=== PATIENT | male | born 1990 | race Caucasian/White ===

== ENCOUNTER 2017-06-06 15:33 | Emergency (ER) | payer MEDICAID ==
[2017-06-06 15:43] VITALS: BP 128/81
[2017-06-06] MEDS ORDERED: BENZONATATE 100 MG CAPSULE PO STA (16:21)
--- NOTE | 2017-06-06 16:23 | ED Physician Documentation ---
PD HPI URI - Stated complaint Stated Complaint: COUGH/SORE THROAT - Chief complaint Chief Complaint: Resp - History obtained from History obtained from: Patient - History of Present Illness Timing - onset: Yesterday Timing details: Still present Associated symptoms: Nasal congestion, Sore throat, Dry cough Similar symptoms before: Has not had sx before - Additional information Additional information: The patient is a 27-year-old male who presents with cough that began yesterday and continues today. He reports associated sore throat from coughing. He denies fever, headache, chest pain, or shortness of breath. He denies vomiting or diarrhea. He denies history of similar symptoms in the past. He does smoke cigarettes. Review of Systems Constitutional: denies: Fever Eyes: denies: Irritation Ears: denies: Ear pain Nose: reports: Congestion Throat: reports: Sore throat Cardiac: denies: Chest pain / pressure Respiratory: reports: Cough. denies: Dyspnea GI: denies: Abdominal Pain, Nausea, Vomiting, Diarrhea : denies: Dysuria Skin: denies: Rash Neurologic: denies: Headache PD PAST MEDICAL HISTORY - Past Medical History Respiratory: None Endocrine/Autoimmune: None - Past Surgical History Past Surgical History: No - Present Medications Home Medications: Ambulatory Orders Medication Instructions Recorded Confirmed Cyclobenzaprine [Flexeril] 10 mg PO TID PRN #20 tablet 08/16/15 10/10/15 HYDROcod/ACETAM 5/325 [[place] 5/325] 1 - 2 ea PO Q6H PRN #20 tablet 08/16/15 Oxycodone HCl/Acetaminophen 1 - 2 each PO Q6H PRN #8 tablet 10/10/15 [Percocet 5-325 mg Tablet] Benzonatate [Tessalon Perle] 100 mg PO BID PRN #10 capsule 06/06/17 - Allergies Allergies/Adverse Reactions: Allergies Allergy/AdvReac Type Severity Reaction Status Date / Time No Known Drug Allergies Allergy Verified 10/10/15 00:40 - Social History Does the pt smoke?: Yes Smoking Status: Current every day smoker Does the pt drink ETOH?: Yes Does the pt have substance abuse?: No - Immunizations Immunizations are current?: Yes - POLST Patient has POLST: No PD ED PE NORMAL - Vitals Vital signs reviewed: Yes (normal) - General General: Alert and oriented X 3, Well developed/nourished - HEENT HEENT: Atraumatic, Ears normal, Moist mucous membranes, Pharynx benign - Neck Neck: No adenopathy, No JVD - Cardiac Cardiac: RRR, No murmur - Respiratory Respiratory: Clear bilaterally, Other (Nagging cough.) - Abdomen Abdomen: Soft, Non tender - Back Back: No CVA TTP - Derm Derm: No rash - Extremities Extremities: No edema, No calf tenderness / cord - Neuro Neuro: Alert and oriented X 3, No motor deficit, Normal speech Results - Vitals Vitals: Oxygen O2 Source Room air - Labs Labs: Laboratory Tests 06/06/17 15:50 Influenza A (Rapid) Negative Influenza B (Rapid) Negative Influenza Types A,B Ag - PD MEDICAL DECISION MAKING - ED course Complexity details: considered differential, d/w patient ED course: The patient's presentation is most consistent with viral upper respiratory infection with a nagging cough. His presentation does not suggest pneumonia or peritonsillar abscess. Influenza swab is negative. Treatment in the emergency department included administration of Tessalon 100 mg orally. He is being discharged with prescription for Tessalon Perles. I discussed with him and his family the expected course of illness, symptomatic treatment and outpatient follow-up, as well as potentially worrisome signs or symptoms that should prompt reevaluation in the emergency department. Departure - Departure Disposition: 01 Home, Self Care Clinical Impression: Upper respiratory tract infection Qualifiers: URI type: unspecified viral URI Qualified Code(s): J06.9 - Acute upper respiratory infection, unspecified Condition: Stable Instructions: ED URI Viral Follow-Up: Roni Nascimento MD [Provider Admit Priv/Credential] - Prescriptions: Benzonatate [Tessalon Perle] 100 mg PO BID PRN #10 capsule PRN Reason: Cough Comments: Take Tylenol or ibuprofen if needed for fever or discomfort. You can use Tessalon as prescribed if needed for cough. Follow up with your primary physician within 2 weeks. Call to schedule appointment. Return to the emergency department if you develop increasing difficulty breathing, or otherwise worsening symptoms. Discharge Date/Time: 06/06/17 16:28
== END 2017-06-06 16:28 | disposition home or self-care (01) ==
LOC: ED 15:33
DX: J06.9 Acute upper respiratory infection, unspecified (principal); F17.200 Nicotine dependence, unspecified, uncomplicated
CPT/HCPCS: 87275; 87276; 99283; A9270

== ENCOUNTER 2018-05-07 19:57 | Emergency (ER) | payer MEDICAID ==
--- NOTE | 2018-05-07 20:42 | ED Physician Documentation ---
PD HPI CHEST PAIN - Stated complaint Stated Complaint: SOA/HEART PALP/VOM - Chief complaint Chief Complaint: General - History obtained from History obtained from: Patient - History of Present Illness Timing - onset: How many days ago (3) Timing - onset during: Rest Timing - duration: Seconds Timing - details: Waxing and waning Pain level max: 3 Pain level now: 1 Severity Comments: mild Quality: Sharp Location: Right chest Radiation: No: Jaw, Neck, Back, Left upper extremity, Right upper extremity Improved by: No: Rest, Oxygen Worsened by: Movement. No: Exertion, Inspiration Associated symptoms: Shortness of air, Palpitations Similar symptoms before: No diagnosis Review of Systems Ten Systems: 10 systems reviewed and negative Constitutional: reports: Reviewed and negative Eyes: reports: Reviewed and negative Ears: reports: Reviewed and negative Nose: reports: Reviewed and negative Throat: reports: Reviewed and negative Cardiac: reports: Reviewed and negative Respiratory: reports: Reviewed and negative GI: reports: Reviewed and negative : reports: Reviewed and negative Skin: reports: Reviewed and negative Musculoskeletal: reports: Reviewed and negative Neurologic: reports: Reviewed and negative Psychiatric: reports: Reviewed and negative Endocrine: reports: Reviewed and negative Immunocompromised: reports: Reviewed and negative PD PAST MEDICAL HISTORY - Past Medical History Past Medical History: Yes Cardiovascular: None Respiratory: Pneumonia Neuro: Headaches, Migraines Endocrine/Autoimmune: None GI: None : Kidney stones HEENT: None Psych: Anxiety Musculoskeletal: None Derm: None - Past Surgical History Past Surgical History: No - Present Medications Home Medications: Ambulatory Orders Medication Instructions Recorded Confirmed Azithromycin [Zithromax] 0 mg PO DAILY #6 tablet 05/07/18 predniSONE [Prednisone] 40 mg PO DAILY #10 tablet 05/07/18 - Allergies Allergies/Adverse Reactions: Allergies Allergy/AdvReac Type Severity Reaction Status Date / Time No Known Drug Allergies Allergy Verified 10/10/15 00:40 - Social History Does the pt smoke?: Yes Smoking Status: Current every day smoker Does the pt drink ETOH?: Yes Does the pt have substance abuse?: No - Immunizations Immunizations are current?: Yes - POLST Patient has POLST: No PD ED PE NORMAL - Vitals Vital signs reviewed: Yes - General General: Alert and oriented X 3, No acute distress - HEENT HEENT: PERRL - Neck Neck: Supple, no meningeal sign - Cardiac Cardiac: RRR, No murmur - Respiratory Respiratory: Clear bilaterally - Abdomen Abdomen: Normal bowel sounds, Soft, Non tender, Non distended - Derm Derm: Warm and dry - Extremities Extremities: No deformity - Neuro Neuro: Alert and oriented X 3 - Psych Psych: Normal mood, Normal affect Results - Vitals Vitals: Vital Signs - 24 hr 05/07/18 20:01 Temperature 36.8 C Heart Rate 90 Respiratory 18 Rate Blood Pressure 132/82 H O2 Saturation 97 Oxygen O2 Source Room air - EKG (time done) 2025 Rate: Rate (enter#) (69) Rhythm: NSR [place]: Normal Intervals: Normal VT, QRS normal. No: Prolonged QT Ischemia: Normal ST segments. No: T wave inversion - Rads (name of study) Chest 2 views Radiology: Final report received, Other (IMPRESSION: Interstitial prominence in the acute setting probably represents bronchitis or an interstitial pneumonitis, most likely viral or mycoplasmal. Chronic changes of reactive airways disease can have a similar appearance.) PD MEDICAL DECISION MAKING - ED course Complexity details: reviewed results, re-evaluated patient, considered differential, d/w patient, d/w family ED course: 28-year-old male presents with cough, shortness of breath, malaise. Chest x-ray shows bronchitis versus interstitial pneumonia. Patient treated for atypical pneumonia with prednisone and azithromycin. Patient to follow-up with primary care provider. Departure - Departure Disposition: ED Left Without Being Seen Clinical Impression: Interstitial pneumonia Instructions: Pneumonia Dc Follow-Up: Roni Nascimento MD [Primary Care Provider] - Prescriptions: Azithromycin [Zithromax] 0 mg PO DAILY #6 tablet predniSONE [Prednisone] 40 mg PO DAILY #10 tablet
--- NOTE | 2018-05-07 21:16 | XRAY Report ---
Reason: Chest pain Procedure Date: 05/07/2018 Accession Number: [id number] / [id number] Procedure: XR - Chest 2 View X-Ray CPT Code: 14596 FULL RESULT: EXAM: CHEST RADIOGRAPHY EXAM DATE: 05/07/2018 08:55 PM. CLINICAL HISTORY: Chest pain. COMPARISON: None. TECHNIQUE: 2 views. FINDINGS: Lungs/Pleura: Interstitial prominence predominantly in the bases with some peribronchial cuffing. No localized infiltrate, consolidation, effusion, or pneumothorax. Mediastinum: Heart and mediastinal contours are unremarkable. Upper lobe vessels not distended. Other: None. IMPRESSION: Interstitial prominence in the acute setting probably represents bronchitis or an interstitial pneumonitis, most likely viral or mycoplasmal. Chronic changes of reactive airways disease can have a similar appearance. RADIA
[2018-05-07 21:43] VITALS: BP 121/86
== END 2018-05-07 21:43 | disposition home or self-care (01) ==
LOC: ED 19:57
DX: J84.9 Interstitial pulmonary disease, unspecified (principal); F17.200 Nicotine dependence, unspecified, uncomplicated
CPT/HCPCS: 71046; 93005; 99283

== ENCOUNTER 2018-05-17 10:58 | Outpatient (CLI) | payer MEDICAID ==
--- NOTE | 2018-05-17 13:13 | XRAY Report ---
Reason: PNEUMONIA Procedure Date: 05/17/2018 Accession Number: [id number] / [id number] Procedure: WCP - Chest 2 View X-Ray CPT Code: 02766 FULL RESULT: EXAM: CHEST RADIOGRAPHY EXAM DATE: 05/17/2018 11:09 AM. CLINICAL HISTORY: PNEUMONIA. COMPARISON: CHEST 2 VIEW 05/07/2018 8:46 PM. TECHNIQUE: 2 views. FINDINGS: Lungs/Pleura: No focal opacities evident. No pleural effusion. No pneumothorax. Normal volumes. Mediastinum: Heart and mediastinal contours are unremarkable. Other: None. IMPRESSION: Normal 2-view chest radiography. RADIA
== END 2018-05-17 10:59 | disposition home or self-care (01) ==
LOC: DI.WCP 10:58
PROVIDERS: ATTEND Family Medicine
DX: J18.9 Pneumonia, unspecified organism (principal)
CPT/HCPCS: 71046

== ENCOUNTER 2018-05-20 13:35 | Emergency (ER) | payer MEDICAID ==
[2018-05-20] MEDS ORDERED: SODIUM CHLORIDE 0.9% 1,000 ML IV ONE ×2 (15:40)
--- NOTE | 2018-05-20 15:43 | ED Physician Documentation ---
History of Present Illness - Stated complaint Stated Complaint: ALOC/NEW MEDICATION - Chief complaint Chief Complaint: General - History obtained from History obtained from: Patient, Family - History of Present Illness Timing: How many days ago (2) Pain level max: 7 Pain level now: 6 - Additonal information Additional information: 28-year-old male started Zoloft on Sunday. On Sunday he began to feel feverish and developed right-sided abdominal pain. Has had some diarrhea and nausea. No vomiting. Pain has worsened since that time. Has not taken anything for the pain. Decreased appetite today. He does have a history of anxiety. Better with rest and worse with palpation. Review of Systems Constitutional: reports: Fever Nose: denies: Rhinorrhea / runny nose, Congestion Cardiac: denies: Chest pain / pressure Respiratory: denies: Cough GI: denies: Hematemesis, Bloody / black stool : denies: Dysuria Skin: denies: Rash PD PAST MEDICAL HISTORY - Past Medical History Cardiovascular: None Respiratory: Pneumonia Neuro: Headaches, Migraines Endocrine/Autoimmune: None GI: None : Kidney stones HEENT: None Psych: Anxiety Musculoskeletal: None Derm: None - Past Surgical History Past Surgical History: No - Present Medications Home Medications: Ambulatory Orders Medication Instructions Recorded Confirmed Sertraline [Zoloft] 50 mg PO DAILY 05/20/18 05/20/18 - Allergies Allergies/Adverse Reactions: Allergies Allergy/AdvReac Type Severity Reaction Status Date / Time No Known Drug Allergies Allergy Verified 05/20/18 13:43 - Social History Does the pt smoke?: Yes Smoking Status: Current every day smoker Does the pt drink ETOH?: Yes Does the pt have substance abuse?: No - Immunizations Immunizations are current?: Yes - POLST Patient has POLST: No PD ED PE NORMAL - Vitals Vital signs reviewed: Yes - General General: Alert and oriented X 3, No acute distress, Well developed/nourished - HEENT HEENT: PERRL, Moist mucous membranes - Neck Neck: Supple, no meningeal sign - Cardiac Cardiac: RRR, Strong equal pulses - Respiratory Respiratory: No respiratory distress, Clear bilaterally - Abdomen Abdomen: Soft, Non distended, Other (Tender to palpation along the right side of the abdomen, positive tenderness at McBurney's point. No peritoneal signs. Negative psoas. Negative obturator. Negative Rovsing) - Back Back: No spinal TTP - Derm Derm: Warm and dry, No rash - Extremities Extremities: No edema - Neuro Neuro: Alert and oriented X 3 - Psych Psych: Normal mood, Normal affect Results - Vitals Vitals: Vital Signs - 24 hr 05/20/18 05/20/18 13:41 17:14 Temperature 36.7 C Heart Rate 77 83 Respiratory 20 16 Rate Blood Pressure 138/81 H 139/80 H O2 Saturation 98 98 Oxygen O2 Source Room air - Labs Labs: Laboratory Tests 05/20/18 05/20/18 05/20/18 15:50 15:50 16:50 WBC 9.6 RBC 5.14 Hgb 15.6 Hct 45.2 MCV 87.8 MCH 30.3 MCHC 34.5 RDW 12.8 Plt Count 270 MPV 7.8 Neut # (Auto) 5.5 Lymph # (Auto) 2.9 [place] # (Auto) 0.8 Eos # (Auto) 0.2 Baso # (Auto) 0.1 Absolute Nucleated RBC 0.00 Nucleated RBC % 0.0 Sodium 137 Potassium 4.2 Chloride 102 Carbon Dioxide 28 Anion Gap 7.0 BUN 16 Creatinine 0.8 Estimated GFR (MDRD) 116 Glucose 96 Calcium 9.5 Total Bilirubin 2.9 H AST 20 ALT 24 Alkaline Phosphatase 47 Total Protein 7.6 Albumin 4.5 Globulin 3.1 Albumin/Globulin Ratio 1.5 Lipase 34 Influenza A (Rapid) Negative Influenza B (Rapid) Negative - Rads (name of study) CT abdomen pelvis Radiology: Prelim report reviewed, EMP read contemporaneously, See rad report (No acute intra-abdominal abnormality. Normal appendix) PD MEDICAL DECISION MAKING - ED course Complexity details: reviewed results, re-evaluated patient, considered differential, d/w patient, d/w family ED course: 28-year-old male presents to the emergency department with possible medication reaction versus viral syndrome of CT for appendicitis. Resting comfortably in the emergency department feels better after IV fluids. We will have him stop the Zoloft and follow-up with his doctor. Patient is well-appearing, nontoxic. Afebrile. Patient counseled regarding signs and symptoms for which I believe and urgent re-evaluation would be necessary. Patient with good understanding of and agreement to plan and is comfortable going home at this time This document was made in part using voice recognition software. While efforts are made to proofread this document, sound alike and grammatical errors may occur. Departure - Departure Disposition: 01 Home, Self Care Clinical Impression: Medication reaction Qualifiers: Encounter type: initial encounter Qualified Code(s): T50.905A - Adverse effect of unspecified drugs, medicaments and biological substances, initial encounter Condition: Good Instructions: ED Drug React Adverse Other Follow-Up: Roni Nascimento MD [Primary Care Provider] - Within 1 week Comments: Stop the Zoloft and see if this makes you feel better. Return if you worsen. Your testing is normal today Forms: Activity restrictions
[2018-05-20] MEDS ORDERED: IOPAMIDOL-300 100 ML VIAL ONE (15:53)
[2018-05-20 15:58] LABS: BASOPHILS # (AUTO) 0.1 10^3/uL (0.0-0.1); BASOPHILS % (AUTO) 1.2 %; EOSINOPHILS # (AUTO) 0.2 10^3/uL (0.0-0.7); EOSINOPHILS % (AUTO) 2.3 %; HGB - HEMOGLOBIN 15.6 g/dL (14.0-18.0); LYMPHOCYTES # (AUTO) 2.9 10^3/uL (1.5-3.5); LYMPHOCYTES % (AUTO) 30.4 %; MEAN CORPUSCULAR HEMOGLOBIN 30.3 pg (27.0-31.0); MEAN CORPUSCULAR HGB CONC 34.5 g/dL (32.0-36.0); MEAN CORPUSCULAR VOLUME 87.8 fL (80.0-94.0); MEAN PLATELET VOLUME 7.8 fL (7.4-11.4); MONOCYTES # (AUTO) 0.8 10^3/uL (0.0-1.0); MONOCYTES % (AUTO) 8.2 %; NEUTROPHILS # (AUTO) 5.5 10^3/uL (1.5-6.6); NEUTROPHILS % (AUTO) 57.9 %; PLT - PLATELET COUNT 270 10^3/uL (130-450); RED BLOOD COUNT 5.14 10^6/uL (4.70-6.10); RED CELL DISTRIBUTION WIDTH 12.8 % (12.0-15.0); WHITE BLOOD COUNT 9.6 x10^3/uL (4.8-10.8)
[2018-05-20 16:17] LABS: ALBUMIN 4.5 g/dL (3.2-5.5); ALBUMIN/GLOBULIN RATIO 1.5 (1.0-2.2); BILIRUBIN,TOTAL 2.9 mg/dL (0.2-1.0); CALCIUM 9.5 mg/dL (8.5-10.3); CREATININE 0.8 mg/dL (0.6-1.2); TOTAL PROTEIN 7.6 g/dL (6.7-8.2)
[2018-05-20] MEDS ORDERED: IOPAMIDOL-300 100 ML VIAL IVP ONE (16:44)
--- NOTE | 2018-05-20 17:00 | CT Report ---
Reason: RLQ abd pain Procedure Date: 05/20/2018 Accession Number: [id number] / [id number] Procedure: CT - Abdomen/Pelvis W CPT Code: FULL RESULT: EXAM: CT ABDOMEN AND PELVIS EXAM DATE: 05/20/2018 04:38 PM. CLINICAL HISTORY: Right lower quadrant pain. COMPARISONS: None. TECHNIQUE: Routine helical CT imaging was performed through the abdomen and pelvis. IV contrast: 100 mL of Isovue-300. Enteric contrast: No. Reconstructions: Coronal and sagittal. In accordance with CT protocol optimization, one or more of the following dose reduction techniques were utilized for this exam: automated exposure control, adjustment of mA and/or KV based on patient size, or use of iterative reconstructive technique. FINDINGS: Lung Bases: Unremarkable. Liver: Normal. No masses. Gallbladder/Bile Ducts: Unremarkable. Spleen: Normal. Pancreas: Normal. Adrenal Glands: Normal. Kidneys: Normal. No masses or hydronephrosis. Peritoneal Cavity/Bowel: Variant cecal bascule anatomy is seen. No free fluid, free air or adenopathy. No masses or acute inflammatory process. The appendix is well visualized and normal. Pelvic Organs: Normal. The bladder and visualized pelvic organs are within normal limits. Vasculature: No aneurysms or other significant abnormality. Bones: No significant abnormality. Other: None. IMPRESSION: No acute intra-abdominal abnormality demonstrated. Appendix is normal. RADIA
[2018-05-20 17:48] VITALS: BP 137/84
== END 2018-05-20 17:50 | disposition home or self-care (01) ==
LOC: ED 13:35
DX: R10.9 Unspecified abdominal pain (principal); T43.225A Adverse effect of selective serotonin reuptake inhibitors, initial encounter; R19.7 Diarrhea, unspecified; F17.200 Nicotine dependence, unspecified, uncomplicated
CPT/HCPCS: 36415; 74177; 80053; 83690; 85025; 87275; 87276; 96360; 99282; 99283; Q9967

== ENCOUNTER 2018-05-22 11:47 | Outpatient (CLI) | payer MEDICAID ==
[2018-05-22 18:47] LABS: BILIRUBIN,URINE NEGATIVE (NEGATIVE); GLUCOSE, URINE (UA) NEGATIVE (NEGATIVE); KETONES,URINE (UA) NEGATIVE (NEGATIVE); LEUKOCYTE ESTERASE, URINE NEGATIVE (NEGATIVE); NITRITE,URINE NEGATIVE (NEGATIVE); OCCULT BLOOD,URINE NEGATIVE (NEGATIVE); PROTEIN,URINE NEGATIVE (NEGATIVE); UROBILINOGEN,URINE 1 (NORMAL) E.U./dL (NORMAL)
[2018-05-22 19:05] LABS: AMORPHOUS SEDIMENT,UR Marked /LPF; BACTERIA,URINE None Seen /HPF (None Seen); CLARITY,URINE CLOUDY (CLEAR); RBC,URINE 0-5 /HPF (0-5); SQUAMOUS EPITHELIAL CELL,UR NONE SEEN (<= Few)
== END 2018-05-22 11:48 | disposition home or self-care (01) ==
LOC: LAB.WCP 11:47
PROVIDERS: ATTEND Family Medicine
DX: R10.9 Unspecified abdominal pain (principal)
CPT/HCPCS: 36415; 81001; 84443; 85651; 87086

== ENCOUNTER 2018-06-21 20:34 | Emergency (ER) | payer MEDICAID ==
[2018-06-21 21:10] LABS: BASOPHILS # (AUTO) 0.1 10^3/uL (0.0-0.1); BASOPHILS % (AUTO) 1.1 %; EOSINOPHILS # (AUTO) 0.1 10^3/uL (0.0-0.7); EOSINOPHILS % (AUTO) 0.9 %; HGB - HEMOGLOBIN 16.3 g/dL (14.0-18.0); LYMPHOCYTES # (AUTO) 2.7 10^3/uL (1.5-3.5); LYMPHOCYTES % (AUTO) 24.4 %; MEAN CORPUSCULAR HEMOGLOBIN 30.3 pg (27.0-31.0); MEAN CORPUSCULAR HGB CONC 34.6 g/dL (32.0-36.0); MEAN CORPUSCULAR VOLUME 87.6 fL (80.0-94.0); MEAN PLATELET VOLUME 7.5 fL (7.4-11.4); MONOCYTES # (AUTO) 0.7 10^3/uL (0.0-1.0); MONOCYTES % (AUTO) 6.2 %; NEUTROPHILS # (AUTO) 7.6 10^3/uL (1.5-6.6); NEUTROPHILS % (AUTO) 67.4 %; PLT - PLATELET COUNT 288 10^3/uL (130-450); RED BLOOD COUNT 5.39 10^6/uL (4.70-6.10); WHITE BLOOD COUNT 11.3 x10^3/uL (4.8-10.8)
[2018-06-21 21:24] LABS: ACETAMINOPHEN < 10 ug/mL (10-30); ALBUMIN 4.9 g/dL (3.2-5.5); ALBUMIN/GLOBULIN RATIO 1.5 (1.0-2.2); ALKALINE PHOSPHATASE 57 IU/L (42-121); ALT ALANINE AMINOTRANSFERASE 25 IU/L (10-60); AST ASPARTATE AMINOTRANSFERASE 19 IU/L (10-42); BILIRUBIN,TOTAL 3.3 mg/dL (0.2-1.0); BUN - BLOOD UREA NITROGEN 14 mg/dL (6-20); CALCIUM 9.5 mg/dL (8.5-10.3); CARBON DIOXIDE - CO2 24 mmol/L (21-32); CHLORIDE 107 mmol/L (101-111); CREATININE 0.7 mg/dL (0.6-1.2); GFR - MDRD 135 (>89); GLUCOSE 101 mg/dL (70-100); LIPASE 31 U/L (22-51); SALICYLATE < 6.0 mg/dL; SODIUM 140 mmol/L (135-145); TOTAL PROTEIN 8.1 g/dL (6.7-8.2)
--- NOTE | 2018-06-21 21:54 | ED Physician Documentation ---
PD HPI MHE - Stated complaint Stated Complaint: SI - Chief complaint Chief Complaint: MHE - History obtained from History obtained from: Patient - History of Present Illness Primary symptom: Suicidal ideation, Self harm - cut (few days ago, small laceration to arm.), Depression. No: Anxiety Timing - onset: How many weeks ago (He has been depressed for several months or more in particular and with worsening the past week or 2. He does get counseling at [facility] starting about a month ago. He is due to see a prescribing provider in July. He states he been feeling more suicidal the past week or so. He did not have a specific plan today did not make any attempt. He had had a small laceration to the right arm a few days ago self-inflicted. He came in for help and evaluation. He feels hospitalization is likely useful.) Contributing factors: No: Substance abuse - ETOH, Substance abuse - drugs Similar symptoms before: Diagnosis (depression and suicidality) Recently seen: Clinic ([facility] last week) Review of Systems Constitutional: denies: Fever, Myalgias Nose: denies: Rhinorrhea / runny nose, Congestion Throat: denies: Sore throat Cardiac: denies: Chest pain / pressure, Palpitations Respiratory: denies: Dyspnea, Cough GI: denies: Abdominal Pain, Nausea, Vomiting, Diarrhea : denies: Dysuria, Frequency, Discharge Skin: denies: Rash Musculoskeletal: denies: Back pain, Joint pain Neurologic: denies: Generalized weakness, Altered mental status, Headache Psychiatric: reports: Depressed, Suicidal. denies: Homicidal, Anxiety PD PAST MEDICAL HISTORY - Past Medical History Cardiovascular: None Respiratory: Pneumonia Neuro: Headaches, Migraines Endocrine/Autoimmune: None GI: None : Kidney stones HEENT: None Psych: Anxiety Musculoskeletal: None Derm: None - Past Surgical History Past Surgical History: No - Present Medications Home Medications: Ambulatory Orders Medication Instructions Recorded Confirmed Buspirone HCl 1 tab PO BID 06/21/18 06/21/18 - Allergies Allergies/Adverse Reactions: Allergies Allergy/AdvReac Type Severity Reaction Status Date / Time No Known Drug Allergies Allergy Verified 06/21/18 20:42 - Social History Does the pt smoke?: Yes Smoking Status: Current every day smoker Does the pt drink ETOH?: Yes Does the pt have substance abuse?: No - Immunizations Immunizations are current?: Yes - POLST Patient has POLST: No PD ED PE NORMAL - Vitals Vital signs reviewed: Yes - General General: Alert and oriented X 3, No acute distress, Well developed/nourished - HEENT HEENT: Pharynx benign - Neck Neck: Supple, no meningeal sign, No adenopathy - Cardiac Cardiac: RRR, No murmur - Respiratory Respiratory: Clear bilaterally - Abdomen Abdomen: Soft, Non tender - Back Back: No CVA TTP - Derm Derm: Normal color, Warm and dry - Extremities Extremities: No deformity, Normal ROM s pain, No edema, No calf tenderness / cord - Neuro Neuro: Alert and oriented X 3, No motor deficit, Normal speech Eye Opening: Spontaneous Motor: Obeys Commands Verbal: Oriented GCS Score: 15 Results - Vitals Vitals: Vital Signs - 24 hr 06/21/18 06/21/18 06/22/18 20:40 23:59 01:02 Temperature 36.7 C Heart Rate 101 H 77 71 Respiratory 18 16 15 Rate Blood Pressure 153/96 H 131/88 H 131/89 H O2 Saturation 99 95 96 06/22/18 06/22/18 02:34 03:34 Temperature Heart Rate 56 L 51 L Respiratory 16 16 Rate Blood Pressure 113/68 120/78 O2 Saturation 96 97 Oxygen O2 Source Room air - Labs Labs: Laboratory Tests 06/21/18 06/21/18 06/21/18 21:03 21:03 21:03 WBC 11.3 H RBC 5.39 Hgb 16.3 Hct 47.2 MCV 87.6 MCH 30.3 MCHC 34.6 RDW 13.0 Plt Count 288 MPV 7.5 Neut # (Auto) 7.6 H Lymph # (Auto) 2.7 [place] # (Auto) 0.7 Eos # (Auto) 0.1 Baso # (Auto) 0.1 Absolute Nucleated RBC 0.01 Nucleated RBC % 0.1 Sodium 140 Potassium 3.9 Chloride 107 Carbon Dioxide 24 Anion Gap 9.0 BUN 14 Creatinine 0.7 Estimated GFR (MDRD) 135 Glucose 101 H Calcium 9.5 Total Bilirubin 3.3 H AST 19 ALT 25 Alkaline Phosphatase 57 Total Protein 8.1 Albumin 4.9 Globulin 3.2 Albumin/Globulin Ratio 1.5 Lipase 31 TSH 2.08 Urine Color Urine Clarity Urine pH Ur Specific [place] Urine Protein Urine Glucose (UA) Urine Ketones Urine Occult Blood Urine Nitrite Urine Bilirubin Urine Urobilinogen Ur Leukocyte Esterase Ur Microscopic Review Urine Culture Comments Salicylates < 6.0 Urine Opiates Screen Ur Oxycodone Screen Urine Methadone Screen Ur Propoxyphene Screen Acetaminophen < 10 L Ur Barbiturates Screen Ur Tricyclics Screen Ur Phencyclidine Scrn Ur Amphetamine Screen U Methamphetamines Scrn U Benzodiazepines Scrn Urine Cocaine Screen U Cannabinoids Screen Ethyl Alcohol < 5.0 06/21/18 23:52 WBC RBC Hgb Hct MCV MCH MCHC RDW Plt Count MPV Neut # (Auto) Lymph # (Auto) [place] # (Auto) Eos # (Auto) Baso # (Auto) Absolute Nucleated RBC Nucleated RBC % Sodium Potassium Chloride Carbon Dioxide Anion Gap BUN Creatinine Estimated GFR (MDRD) Glucose Calcium Total Bilirubin AST ALT Alkaline Phosphatase Total Protein Albumin Globulin Albumin/Globulin Ratio Lipase TSH Urine Color DARK YELLOW Urine Clarity CLEAR Urine pH 6.5 Ur Specific [place] >=1.030 H Urine Protein TRACE Urine Glucose (UA) NEGATIVE Urine Ketones NEGATIVE Urine Occult Blood NEGATIVE Urine Nitrite NEGATIVE Urine Bilirubin NEGATIVE Urine Urobilinogen 0.2 (NORMAL) Ur Leukocyte Esterase NEGATIVE Ur Microscopic Review NOT INDICATED Urine Culture Comments NOT INDICATED Salicylates Urine Opiates Screen NEGATIVE Ur Oxycodone Screen NEGATIVE Urine Methadone Screen NEGATIVE Ur Propoxyphene Screen NEGATIVE Acetaminophen Ur Barbiturates Screen NEGATIVE Ur Tricyclics Screen NEGATIVE Ur Phencyclidine Scrn NEGATIVE Ur Amphetamine Screen NEGATIVE U Methamphetamines Scrn NEGATIVE U Benzodiazepines Scrn NEGATIVE Urine Cocaine Screen NEGATIVE U Cannabinoids Screen NEGATIVE Ethyl Alcohol PD MEDICAL DECISION MAKING - ED course Complexity details: considered differential (Patient is feeling depressed and vaguely suicidal without specific plan. He does feel safer here and would like to talk to social work about potential hospitalization. He is aware he will need to wait overnight into tomorrow. He is content with that.), d/w patient Departure - Departure Clinical Impression: Suicidal ideation Depression Qualifiers: Depression Type: unspecified Qualified Code(s): F32.9 - Major depressive disorder, single episode, unspecified Condition: Stable Record reviewed to determine appropriate education?: Yes Instructions: ED Depression Follow-Up: Roni Nascimento MD [Primary Care Provider] - [facility] [place] [Provider Group] Comments: Continue usual medications. Follow-up with [facility] this coming week as planned. Continue current medications.
[2018-06-21 23:56] LABS: MUDS CUTOFF CONCENTRATIONS CUTOFF CONC BELOW:
[2018-06-21 23:59] LABS: BILIRUBIN,URINE NEGATIVE (NEGATIVE); GLUCOSE, URINE (UA) NEGATIVE (NEGATIVE); KETONES,URINE (UA) NEGATIVE (NEGATIVE); LEUKOCYTE ESTERASE, URINE NEGATIVE (NEGATIVE); NITRITE,URINE NEGATIVE (NEGATIVE); OCCULT BLOOD,URINE NEGATIVE (NEGATIVE); PH,URINE 6.5 PH (5.0-7.5); PROTEIN,URINE TRACE mg/dL (NEGATIVE); UROBILINOGEN,URINE 0.2 (NORMAL) E.U./dL (NORMAL)
[2018-06-22 00:04] LABS: CLARITY,URINE CLEAR (CLEAR)
[2018-06-22 00:16] LABS: AMPHETAMINE SCREEN,URINE NEGATIVE (NEGATIVE); BENZODIAZEPINES SCREEN, URINE NEGATIVE (NEGATIVE); COCAINE SCREEN URINE NEGATIVE (NEGATIVE); METHADONE SCREEN, URINE NEGATIVE (NEGATIVE); METHAMPHETAMINES SCREEN, URINE NEGATIVE (NEGATIVE); OPIATE SCREEN, URINE NEGATIVE (NEGATIVE); OXYCODONE SCREEN, URINE NEGATIVE (NEGATIVE); PROPOXYPHENE SCREEN, URINE NEGATIVE (NEGATIVE); TRICYCLIC ANTIDEPRESSANT,URINE NEGATIVE (NEGATIVE)
[2018-06-22 12:26] VITALS: BP 131/83
== END 2018-06-22 12:29 | disposition home or self-care (01) ==
LOC: ED 20:34
DX: R45.851 Suicidal ideations (principal); F32.9 Major depressive disorder, single episode, unspecified; S41.111A Laceration without foreign body of right upper arm, initial encounter; X78.9XXA Intentional self-harm by unspecified sharp object, initial encounter
CPT/HCPCS: 36415; 80053; 80306; 80307; 80320; 80329; 81001; 81003; 83690; 84443; 85025; 87086; 99283; 99284

== ENCOUNTER 2018-09-18 18:04 | Outpatient (CLI) | payer MEDICAID | END 2018-09-18 18:05 | disposition critical access hospital (66) | LOC: EMS 18:04 | PROVIDERS: ATTEND Surgery | DX: R07.9 Chest pain, unspecified (principal); R05 Cough | CPT/HCPCS: A0425; A0429; A0999 ==

== ENCOUNTER 2018-09-18 18:23 | Emergency (ER) | payer MEDICAID ==
[2018-09-18 19:03] LABS: BASOPHILS # (AUTO) 0.1 10^3/uL (0.0-0.1); BASOPHILS % (AUTO) 0.6 %; EOSINOPHILS # (AUTO) 0.7 10^3/uL (0.0-0.7); EOSINOPHILS % (AUTO) 7.1 %; HGB - HEMOGLOBIN 16.2 g/dL (14.0-18.0); LYMPHOCYTES # (AUTO) 2.9 10^3/uL (1.5-3.5); LYMPHOCYTES % (AUTO) 31.1 %; MEAN CORPUSCULAR HEMOGLOBIN 30.7 pg (27.0-31.0); MEAN CORPUSCULAR HGB CONC 35.1 g/dL (32.0-36.0); MEAN CORPUSCULAR VOLUME 87.3 fL (80.0-94.0); MEAN PLATELET VOLUME 9.4 fL (7.4-11.4); MONOCYTES # (AUTO) 0.8 10^3/uL (0.0-1.0); MONOCYTES % (AUTO) 8.8 %; NEUTROPHILS # (AUTO) 4.9 10^3/uL (1.5-6.6); PLT - PLATELET COUNT 303 10^3/uL (130-450); RED BLOOD COUNT 5.28 10^6/uL (4.70-6.10); RED CELL DISTRIBUTION WIDTH 12.4 % (12.0-15.0); WHITE BLOOD COUNT 9.4 x10^3/uL (4.8-10.8)
[2018-09-18 19:10] LABS: ALBUMIN 4.6 g/dL (3.2-5.5); ALBUMIN/GLOBULIN RATIO 1.4 (1.0-2.2); BILIRUBIN,TOTAL 1.2 mg/dL (0.2-1.0); CALCIUM 9.7 mg/dL (8.5-10.3); CREATININE 0.8 mg/dL (0.6-1.2); TOTAL PROTEIN 7.8 g/dL (6.7-8.2)
--- NOTE | 2018-09-18 19:22 | XRAY Report ---
Reason: cough Procedure Date: 09/18/2018 Accession Number: [id number] / [id number] Procedure: XR - Chest 2 View X-Ray CPT Code: 49578 FULL RESULT: EXAM: CHEST RADIOGRAPHY EXAM DATE: 09/18/2018 07:00 PM. CLINICAL HISTORY: Cough. COMPARISON: CHEST 2 VIEW 05/17/2018 10:54 AM. TECHNIQUE: 2 views. FINDINGS: Lungs/Pleura: No focal opacities evident. No pleural effusion. No pneumothorax. Normal volumes. Mediastinum: Heart and mediastinal contours are unremarkable. Other: None. IMPRESSION: No acute cardiopulmonary process. RADIA
--- NOTE | 2018-09-18 19:24 | ED Physician Documentation ---
History of Present Illness - Stated complaint Stated Complaint: COUGH/ANXIETY - Chief complaint Chief Complaint: Resp - History obtained from History obtained from: Patient - History of Present Illness Timing: How many weeks ago (1) Pain level max: 6 Pain level now: 6 Improved by: nothing Worsened by: deep breathing, coughing - Additonal information Additional information: states coughing for the past week or so. States chest hurts from coughing. Has a history of pneumonia. no fever. no vomiting. no abd pain. no diarrhea. Review of Systems Constitutional: denies: Fever, Chills Nose: denies: Rhinorrhea / runny nose, Congestion GI: denies: Vomiting, Diarrhea Skin: denies: Rash Musculoskeletal: denies: Neck pain, Back pain Neurologic: denies: Headache PD PAST MEDICAL HISTORY - Past Medical History Past Medical History: Yes Cardiovascular: None Respiratory: Pneumonia Neuro: Headaches, Migraines Endocrine/Autoimmune: None GI: None : Kidney stones HEENT: None Psych: Anxiety Musculoskeletal: None Derm: None - Past Surgical History Past Surgical History: No - Present Medications Home Medications: Ambulatory Orders Medication Instructions Recorded Confirmed Buspirone HCl 1 tab PO BID 06/21/18 06/21/18 - Allergies Allergies/Adverse Reactions: Allergies Allergy/AdvReac Type Severity Reaction Status Date / Time No Known Drug Allergies Allergy Verified 09/18/18 18:36 - Social History Does the pt smoke?: Yes Smoking Status: Current every day smoker Does the pt drink ETOH?: Yes Does the pt have substance abuse?: Yes Substance Use and Type: Marijuana - Immunizations Immunizations are current?: Yes - POLST Patient has POLST: No PD ED PE NORMAL - Vitals Vital signs reviewed: Yes - General General: Alert and oriented X 3, No acute distress - HEENT HEENT: Ears normal, Moist mucous membranes, Pharynx benign - Neck Neck: Supple, no meningeal sign - Cardiac Cardiac: RRR, No murmur - Respiratory Respiratory: No respiratory distress, Clear bilaterally - Abdomen Abdomen: Soft, Non tender, Non distended - Derm Derm: Warm and dry - Extremities Extremities: No calf tenderness / cord - Neuro Neuro: Alert and oriented X 3 - Free text exam Free text exam: To palpation across the anterior chest wall. Reproduces his pain. No crepitus. No ecchymosis. Results - Vitals Vitals: Vital Signs - 24 hr 09/18/18 09/18/18 18:25 19:41 Temperature 36.7 C Heart Rate 71 78 Respiratory 18 16 Rate Blood Pressure 142/79 H 127/73 O2 Saturation 98 98 Oxygen O2 Source Room air - Labs Labs: Laboratory Tests 09/18/18 09/18/18 18:51 18:51 WBC 9.4 RBC 5.28 Hgb 16.2 Hct 46.1 MCV 87.3 MCH 30.7 MCHC 35.1 RDW 12.4 Plt Count 303 MPV 9.4 Neut # (Auto) 4.9 Lymph # (Auto) 2.9 [place] # (Auto) 0.8 Eos # (Auto) 0.7 Baso # (Auto) 0.1 Absolute Nucleated RBC 0.00 Nucleated RBC % 0.0 Sodium 141 Potassium 4.2 Chloride 107 Carbon Dioxide 25 Anion Gap 9.0 BUN 22 H Creatinine 0.8 Estimated GFR (MDRD) 116 Glucose 102 H Calcium 9.7 Total Bilirubin 1.2 H AST 19 ALT 24 Alkaline Phosphatase 58 Total Protein 7.8 Albumin 4.6 Globulin 3.2 Albumin/Globulin Ratio 1.4 Lipase 35 - Rads (name of study) cxr Radiology: Prelim report reviewed, EMP read contemporaneously, See rad report (No acute disease) PD MEDICAL DECISION MAKING - ED course Complexity details: reviewed results, re-evaluated patient, considered differential, d/w patient ED course: Patient with what appears to be costochondritis. He declines pain medication here or for home. No pneumonia. No evidence of pulmonary embolus. No evidence of acute coronary syndrome. Patient counseled regarding signs and symptoms for which I believe and urgent re-evaluation would be necessary. Patient with good understanding of and agreement to plan and is comfortable going home at this time This document was made in part using voice recognition software. While efforts are made to proofread this document, sound alike and grammatical errors may occur. Departure - Departure Disposition: 01 Home, Self Care Clinical Impression: Costochondritis, acute Condition: Good Instructions: ED Chest Pain Costochondritis Follow-Up: Roni Nascimento MD [Primary Care Provider] - Within 1 week Comments: Your x-ray does not show pneumonia. Your blood work is normal. You can use Tylenol or Motrin as needed for pain. Return if you worsen. Follow-up with your doctor for further care. Discharge Date/Time: 09/18/18 19:42
[2018-09-18 19:42] VITALS: BP 127/73
== END 2018-09-18 19:42 | disposition home or self-care (01) ==
LOC: EDUNIT# → ED 18:23
DX: M94.0 Chondrocostal junction syndrome [Tietze] (principal); F17.200 Nicotine dependence, unspecified, uncomplicated
CPT/HCPCS: 36415; 71046; 80053; 83690; 85025; 99283; 99284

== ENCOUNTER 2018-10-29 20:37 | Outpatient (CLI) | payer MEDICAID | END 2018-10-29 20:38 | disposition critical access hospital (66) | LOC: EMS 20:37 | PROVIDERS: ATTEND Surgery | DX: R55 Syncope and collapse (principal) | CPT/HCPCS: A0425; A0429; A0999 ==

== ENCOUNTER 2018-10-29 20:56 | Emergency (ER) | payer MEDICAID ==
[2018-10-29 21:28] LABS: CALCIUM 9.8 mg/dL (8.5-10.3); CREATININE 0.9 mg/dL (0.6-1.2)
--- NOTE | 2018-10-29 22:38 | CT Report ---
Reason: syncope, perseverating Procedure Date: 10/29/2018 Accession Number: [id number] / [id number] Procedure: CT - HEAD WO CPT Code: FULL RESULT: EXAM: CT HEAD EXAM DATE: 10/29/2018 10:13 PM. CLINICAL HISTORY: Syncope, perseverating. COMPARISON: None. TECHNIQUE: Multiaxial CT images were obtained from the foramen magnum to the vertex. Reformats: Sagittal and coronalIV contrast: None. In accordance with CT protocol optimization, one or more of the following dose reduction techniques were utilized for this exam: automated exposure control, adjustment of mA and/or KV based on patient size, or use of iterative reconstructive technique. FINDINGS: Parenchyma: No intraparenchymal hemorrhage. No evidence of mass, midline shift, or CT findings of infarction. Davidson-white differentiation is distinct. Extraaxial Spaces: Normal for age. No subdural or epidural collections identified. Ventricles: Normal in size and position. Sinuses and Orbits: Imaged paranasal sinuses, orbits, and mastoids show no significant abnormality. Bones: No evidence of fracture or calvarial defect. Other: None. IMPRESSION: No significant intracranial abnormality. RADIA
[2018-10-29 23:11] LABS: MUDS CUTOFF CONCENTRATIONS CUTOFF CONC BELOW:
[2018-10-29 23:30] LABS: AMPHETAMINE SCREEN,URINE NEGATIVE (NEGATIVE); BENZODIAZEPINES SCREEN, URINE NEGATIVE (NEGATIVE); COCAINE SCREEN URINE NEGATIVE (NEGATIVE); METHADONE SCREEN, URINE NEGATIVE (NEGATIVE); METHAMPHETAMINES SCREEN, URINE NEGATIVE (NEGATIVE); OPIATE SCREEN, URINE NEGATIVE (NEGATIVE); OXYCODONE SCREEN, URINE NEGATIVE (NEGATIVE); PROPOXYPHENE SCREEN, URINE NEGATIVE (NEGATIVE); TRICYCLIC ANTIDEPRESSANT,URINE NEGATIVE (NEGATIVE)
--- NOTE | 2018-10-29 23:40 | ED Physician Documentation ---
PD HPI SYNCOPE - Stated complaint Stated Complaint: SYNCOPE - Chief complaint Chief Complaint: Neuro - History obtained from History obtained from: Friend, EMS - History of Present Illness Witnessed: Witnessed Timing - onset: How many hours ago (2) Duration: Hours (at least 2 horus) Preceding symptoms: Other (reports he can't remember what happened for the last 2 horus and has repeated himself several times) Associated symptoms: Headache. No: Incontinant of urine, Incontinant of stool, Vision changes, Chest pain, Dyspnea, Nausea / vomiting, Abdominal pain Injury occurred: Other (pt denies injury. he was found sitting next to a wall). No: Fell, Head injury, Neck injury, Bit tongue, None, Unknown Treatment CASE REVIEWER: Other (glucose check was 108) Similar symptoms before: Other (reports he keeps passing out) - Treatment prior to arrival Treatment prior to arrival: glucose 108 - Additional information Additional information: 28 y/o M found by EMS sitting against a wall reporting he passed out and has a hx of passing out and continually dose so. Pt refuses to provide history on arrival states he can't remember anything or his date of but on further questioning pt does recall his date of and can tell us where he was and notes that he was in the kitchen and then doesn't remember. He has recurrent episodes of these events for months without a known diagnosis. Denies alcohol or drug use. Now reports intermittent numbness and tingling in his R hand. Denies neck pain. Review of Systems Unable to obtain: Uncooperative PD PAST MEDICAL HISTORY - Past Medical History Past Medical History: Yes Cardiovascular: None Respiratory: Pneumonia Neuro: Headaches, Migraines Endocrine/Autoimmune: None GI: GERD : Kidney stones HEENT: None Psych: Anxiety Musculoskeletal: None Derm: None - Past Surgical History Past Surgical History: No - Present Medications Home Medications: Ambulatory Orders Medication Instructions Recorded Confirmed RX: Buspirone HCl 1 tab PO BID 06/21/18 06/21/18 - Allergies Allergies/Adverse Reactions: Allergies Allergy/AdvReac Type Severity Reaction Status Date / Time No Known Drug Allergies Allergy Verified 10/29/18 21:04 - Social History Does the pt smoke?: Yes Smoking Status: Current every day smoker Does the pt drink ETOH?: Yes Does the pt have substance abuse?: Yes - Immunizations Immunizations are current?: Yes - POLST Patient has POLST: No PD ED PE NORMAL - Vitals Vital signs reviewed: Yes - General General: Alert and oriented X 3, Other (anxious ) - HEENT HEENT: Atraumatic, Pharynx benign - Neck Neck: Supple, no meningeal sign, No JVD - Cardiac Cardiac: RRR, No murmur, No gallop, No rub, Strong equal pulses - Respiratory Respiratory: No respiratory distress - Abdomen Abdomen: Soft, Non tender, Non distended - Male Male : Deferred - Rectal Rectal: Deferred - Derm Derm: Normal color, Warm and dry, No rash - Extremities Extremities: No deformity, No tenderness to palpate, Normal ROM s pain, No edema, No calf tenderness / cord - Neuro Neuro: Alert and oriented X 3, No motor deficit, No sensory deficit Eye Opening: Spontaneous Motor: Obeys Commands Verbal: Oriented GCS Score: 15 - Psych Psych: Other (anxious ) Results - Vitals Vitals: Vital Signs - 24 hr 10/29/18 10/29/18 10/29/18 21:02 21:18 21:52 Temperature 36.6 C Heart Rate 80 76 Respiratory 18 17 18 Rate Blood Pressure 144/90 H 125/83 H O2 Saturation 98 98 10/29/18 10/29/18 22:12 23:44 Temperature 36.6 C Heart Rate 70 Respiratory 17 16 Rate Blood Pressure 131/75 H O2 Saturation 96 Oxygen O2 Source Room air - EKG (time done) 21:05 Rate: Rate (enter#) (72) Rhythm: NSR [place]: Normal Intervals: Normal [place] QRS: Normal Ischemia: Normal ST segments Computer interpretation: Agree with computer - Labs Labs: Laboratory Tests 10/29/18 10/29/18 21:12 23:05 Sodium 140 Potassium 3.7 Chloride 107 Carbon Dioxide 21 Anion Gap 12.0 BUN 16 Creatinine 0.9 Estimated GFR (MDRD) 101 Glucose 101 H Calcium 9.8 Urine Opiates Screen NEGATIVE Ur Oxycodone Screen NEGATIVE Urine Methadone Screen NEGATIVE Ur Propoxyphene Screen NEGATIVE Ur Barbiturates Screen NEGATIVE Ur Tricyclics Screen NEGATIVE Ur Phencyclidine Scrn NEGATIVE Ur Amphetamine Screen NEGATIVE U Methamphetamines Scrn NEGATIVE U Benzodiazepines Scrn NEGATIVE Urine Cocaine Screen NEGATIVE U Cannabinoids Screen NEGATIVE negative UDS normal BMP - Rads (name of study) CT head Radiology: Final report received, See rad report (negative head CT) PD MEDICAL DECISION MAKING - ED course Complexity details: reviewed old records, reviewed results, re-evaluated patient, considered differential, d/w patient, d/w family ED course: ddx - arrhythmia, vasovagal syncope, seizure, psychogenic nonepileptic seizure, dehydration, anxiety 28 y/o M with multiple episodes of syncopal episodes which are recurrent, unable to provide much history today but per roommate he had slumped against a wall and was sitting upright when she found him without evidence of trauma. He states he doesn't recall much about the episode or what happened 2 hours before and this has happened many times. On exam he is anxious and uncooperative, will answer questions and is oriented when probed multiple times repeatedly. He has no focal deficits on exam but reports intermittent numbness and tingling in his R hand. He has no signs of traum and no neck tenderness or cspine tenderness and has normal full ROM. His labs, ekg, and CT head are unremarkable as are his physican examination. His EKG is not suggestive of arrhythmia due to wpw, brugada, prolonged qt, avnrd or other abnormality. He is ambulatory in the ED. I feel he is stable for discharge at this time as he has returned to baseline and advised him to f/u with his PCP. Departure - Departure Disposition: 01 Home, Self Care Clinical Impression: Syncope Condition: Stable Record reviewed to determine appropriate education?: Yes Instructions: ED Fainting Unkn Cause Follow-Up: your, doctor [Other] Comments: Your EKG, labs, urine tests and CT scan of your brain and head today were all normal. You should follow up with your regular doctor to further evaluate your recurrent syncopal episodes. Discharge Date/Time: 10/30/18 00:00
[2018-10-29 23:44] VITALS: BP 131/75
== END 2018-10-30 | disposition home or self-care (01) ==
LOC: EDBD → EDUNIT# → ED 20:56
DX: R55 Syncope and collapse (principal); F17.200 Nicotine dependence, unspecified, uncomplicated
CPT/HCPCS: 36415; 70450; 80048; 80306; 93005; 99284; 99285

== ENCOUNTER 2018-12-05 09:30 | Outpatient (CLI) | payer MEDICAID | END 2018-12-05 09:31 | disposition home or self-care (01) | LOC: RT 09:30 | PROVIDERS: ATTEND Physician Assistant Medical | DX: R06.02 Shortness of breath (principal) | CPT/HCPCS: 94010 ==

== ENCOUNTER 2019-01-25 10:13 | Outpatient (CLI) | payer MEDICAID | END 2019-01-25 10:14 | disposition critical access hospital (66) | LOC: EMS 10:13 | PROVIDERS: ATTEND Surgery | DX: R20.8 Other disturbances of skin sensation (principal); R53.1 Weakness | CPT/HCPCS: A0425; A0429 ==

== ENCOUNTER 2019-01-25 10:33 | Emergency (ER) | payer MEDICAID ==
[2019-01-25] MEDS ORDERED: SODIUM CHLORIDE 0.9% 1,000 ML IV ONE (10:42)
[2019-01-25] MEDS ORDERED: ONDANSETRON 4 MG/2 ML VIAL IVP STA (10:42)
[2019-01-25] MEDS ORDERED: KETOROLAC 30 MG/ML VIAL IVP STA (10:42)
--- NOTE | 2019-01-25 10:49 | ED Physician Documentation ---
History of Present Illness - Stated complaint Stated Complaint: WEAKNESS - Chief complaint Chief Complaint: Neuro - History obtained from History obtained from: Patient, EMS - History of Present Illness Timing: Today Pain level max: 7 Pain level now: 6 - Additonal information Additional information: 29-year-old male presents to the emergency department stating that he feels weak today. Had nausea. Abdominal pain. He is concerned that this could be serotonin syndrome. Had his fluoxetine increased 2 weeks ago. Nothing makes it better or worse. He is not feeling palpitations. Not having hallucinations. Abdominal pain is mainly in the left lower quadrant. Had diarrhea x1 today. Review of Systems Ten Systems: 10 systems reviewed and negative Constitutional: denies: Fever, Chills Ears: denies: Ear pain Nose: denies: Rhinorrhea / runny nose, Congestion Cardiac: denies: Palpitations Respiratory: denies: Dyspnea, Cough GI: reports: Abdominal Pain, Nausea, Diarrhea (x1). denies: Vomiting, Constipation, Hematemesis, Bloody / black stool Skin: denies: Rash Musculoskeletal: denies: Neck pain, Back pain Neurologic: denies: Focal weakness, Numbness, Confused, Altered mental status, Headache, LOC PD PAST MEDICAL HISTORY - Past Medical History Cardiovascular: None Respiratory: Pneumonia Neuro: Headaches, Migraines Endocrine/Autoimmune: None GI: GERD : Kidney stones HEENT: None Psych: Anxiety Musculoskeletal: None Derm: None - Past Surgical History Past Surgical History: No - Present Medications Home Medications: Ambulatory Orders Medication Instructions Recorded Confirmed Buspirone HCl 1 tab ORAL BID 01/25/19 01/25/19 FLUoxetine [PROzac] 80 mg PO DAILY 01/25/19 01/25/19 Prazosin HCl 2 mg PO QPM 01/25/19 01/25/19 - Allergies Allergies/Adverse Reactions: Allergies Allergy/AdvReac Type Severity Reaction Status Date / Time No Known Drug Allergies Allergy Verified 01/25/19 10:41 - Social History Does the pt smoke?: Yes Smoking Status: Current every day smoker Does the pt drink ETOH?: Yes Does the pt have substance abuse?: Yes - Immunizations Immunizations are current?: Yes - POLST Patient has POLST: No PD ED PE NORMAL - Vitals Vital signs reviewed: Yes - General General: Alert and oriented X 3, No acute distress, Well developed/nourished - HEENT HEENT: PERRL, Moist mucous membranes - Neck Neck: Supple, no meningeal sign - Cardiac Cardiac: RRR, Strong equal pulses - Respiratory Respiratory: No respiratory distress, Clear bilaterally - Abdomen Abdomen: Soft, Non distended, Other (TTP LLQ, no peritoneal signs) - Back Back: No spinal TTP - Derm Derm: Warm and dry - Extremities Extremities: No edema, No calf tenderness / cord - Neuro Neuro: Alert and oriented X 3, 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, No motor deficit, No sensory deficit, Normal speech Eye Opening: Spontaneous Motor: Obeys Commands Verbal: Oriented GCS Score: 15 - Psych Psych: Normal mood, Normal affect Results - Vitals Vitals: Vital Signs - 24 hr 01/25/19 01/25/19 01/25/19 10:34 10:52 11:34 Temperature 36.8 C Heart Rate 60 58 L 55 L Respiratory 18 16 16 Rate Blood Pressure 137/100 H 137/100 H 112/83 H O2 Saturation 96 98 98 01/25/19 12:52 Temperature Heart Rate 61 Respiratory 13 Rate Blood Pressure 133/91 H O2 Saturation 98 Oxygen O2 Source Room air - EKG (time done) 1049 Rate: Rate (enter#) (56) Rhythm: NSR [place]: Normal Intervals: Normal [place] QRS: Normal Ischemia: Normal ST segments - Labs Labs: Laboratory Tests 01/25/19 01/25/19 10:48 10:48 WBC 7.6 RBC 5.11 Hgb 14.9 Hct 43.1 MCV 84.3 MCH 29.2 MCHC 34.6 RDW 12.3 Plt Count 271 MPV 9.6 Neut # (Auto) 4.7 Lymph # (Auto) 1.9 [place] # (Auto) 0.7 Eos # (Auto) 0.2 Baso # (Auto) 0.0 Absolute Nucleated RBC 0.00 Nucleated RBC % 0.0 Sodium 138 Potassium 4.1 Chloride 106 Carbon Dioxide 25 Anion Gap 7.0 BUN 17 Creatinine 0.7 Estimated GFR (MDRD) 134 Glucose 93 Calcium 9.1 Phosphorus 1.8 L Magnesium 2.2 Total Bilirubin 3.0 H AST 21 ALT 22 Alkaline Phosphatase 52 Total Protein 7.6 Albumin 4.3 Globulin 3.3 Albumin/Globulin Ratio 1.3 Lipase 58 H - Rads (name of study) CT abd/pelvis Radiology: Prelim report reviewed, EMP read contemporaneously, See rad report (No acute abnormality) PD MEDICAL DECISION MAKING - ED course Complexity details: reviewed results, re-evaluated patient, considered differential, d/w patient, d/w family ED course: 29-year-old male presents the emergency department with feeling generally unwell today. No evidence of serotonin syndrome. Normal laboratory testing. Normal CT scan of the abdomen pelvis. No neurological deficits. Feels better after IV fluids, Toradol, Zofran. We will continue supportive care and follow-up with his doctor. Patient counseled regarding signs and symptoms for which I believe and urgent re-evaluation would be necessary. Patient with good understanding of and agreement to plan and is comfortable going home at this time This document was made in part using voice recognition software. While efforts are made to proofread this document, sound alike and grammatical errors may occur. Ambulating and tolerating p.o. without any difficulty in the emergency department. Departure - Departure Disposition: 01 Home, Self Care Clinical Impression: Weakness, Viral syndrome Condition: Good Instructions: ED Viral Syndrome, ED Weakness [facility] Follow-Up: Miguel Connors PA-C [Primary Care Provider] - Within 1 week Comments: Follow-up with your doctor for further care. Return if you worsen. Your testing is normal today. Discharge Date/Time: 01/25/19 13:04
[2019-01-25 10:55] LABS: BASOPHILS % (AUTO) 0.5 %; EOSINOPHILS # (AUTO) 0.2 10^3/uL (0.0-0.7); EOSINOPHILS % (AUTO) 2.8 %; HGB - HEMOGLOBIN 14.9 g/dL (14.0-18.0); LYMPHOCYTES # (AUTO) 1.9 10^3/uL (1.5-3.5); LYMPHOCYTES % (AUTO) 25.2 %; MEAN CORPUSCULAR HEMOGLOBIN 29.2 pg (27.0-31.0); MEAN CORPUSCULAR HGB CONC 34.6 g/dL (32.0-36.0); MEAN CORPUSCULAR VOLUME 84.3 fL (80.0-94.0); MEAN PLATELET VOLUME 9.6 fL (7.4-11.4); MONOCYTES # (AUTO) 0.7 10^3/uL (0.0-1.0); NEUTROPHILS # (AUTO) 4.7 10^3/uL (1.5-6.6); NEUTROPHILS % (AUTO) 62.1 %; PLT - PLATELET COUNT 271 10^3/uL (130-450); RED BLOOD COUNT 5.11 10^6/uL (4.70-6.10); RED CELL DISTRIBUTION WIDTH 12.3 % (12.0-15.0); WHITE BLOOD COUNT 7.6 x10^3/uL (4.8-10.8)
[2019-01-25 11:11] LABS: ALBUMIN 4.3 g/dL (3.2-5.5); ALBUMIN/GLOBULIN RATIO 1.3 (1.0-2.2); CALCIUM 9.1 mg/dL (8.5-10.3); CREATININE 0.7 mg/dL (0.6-1.2); MAGNESIUM 2.2 mg/dL (1.7-2.8); PHOSPHORUS 1.8 mg/dL (2.5-4.6); TOTAL PROTEIN 7.6 g/dL (6.7-8.2)
[2019-01-25] MEDS ORDERED: IOVERSOL 320 100 ML VIAL IVP ONE ×2 (11:31→12:17)
--- NOTE | 2019-01-25 12:18 | CT Report ---
Reason: LLQ abd pain Procedure Date: 01/25/2019 Accession Number: [id number] / [id number] Procedure: CT - Abdomen/Pelvis W CPT Code: Final Report FULL RESULT: EXAM: CT ABDOMEN AND PELVIS EXAM DATE: 01/25/2019 11:50 AM. CLINICAL HISTORY: Left lower quadrant pain. COMPARISONS: ABDOMEN/PELVIS W/ 05/20/2018 4:36 PM. TECHNIQUE: Routine helical CT imaging was performed through the abdomen and pelvis. IV contrast: 90 mL Optiray 320. Enteric contrast: No. Reconstructions: Coronal and sagittal. In accordance with CT protocol optimization, one or more of the following dose reduction techniques were utilized for this exam: automated exposure control, adjustment of mA and/or KV based on patient size, or use of iterative reconstructive technique. FINDINGS: Lung Bases: Unremarkable. Liver: The liver demonstrates a tiny subcentimeter low-density focus in segment 6 (image 22/3), technically too small to further characterize and indeterminant but probable tiny cyst or hemangioma. Gallbladder/Bile Ducts: Unremarkable. Spleen: Normal. Pancreas: Normal. Adrenal Glands: Normal. Kidneys: Normal. No masses or hydronephrosis. Peritoneal Cavity/Bowel: Normal. No free fluid, free air or adenopathy. No masses or acute inflammatory process. The appendix is well visualized and normal. Pelvic Organs: Normal. The bladder and visualized pelvic organs are within normal limits. Vasculature: No aneurysms or other significant abnormality. Bones: No significant abnormality. Other: None. IMPRESSION: No acute intra-abdominal abnormality demonstrated. No etiology for left lower quadrant pain identified. RADIA
[2019-01-25 12:52] VITALS: BP 133/91
== END 2019-01-25 13:04 | disposition home or self-care (01) ==
LOC: EDUNIT# → ED 10:33
DX: B34.9 Viral infection, unspecified (principal); R53.1 Weakness; F17.200 Nicotine dependence, unspecified, uncomplicated
CPT/HCPCS: 36415; 74177; 80053; 83690; 83735; 84100; 85025; 93005; 96361; 96374; 96375; 99284; Q9967

== ENCOUNTER 2019-06-29 18:30 | Outpatient (CLI) | payer MEDICAID | END 2019-06-29 18:31 | disposition critical access hospital (66) | LOC: EMS 18:30 | PROVIDERS: ATTEND Surgery | DX: R41.82 Altered mental status, unspecified (principal); R11.10 Vomiting, unspecified; R05 Cough | CPT/HCPCS: A0425; A0429; A0999 ==

== ENCOUNTER 2019-06-29 18:49 | Emergency (ER) | payer MEDICAID ==
--- NOTE | 2019-06-29 18:59 | ED Physician Documentation ---
PD HPI ALTERED MENTAL STATUS - Stated complaint Stated Complaint: AMS - History obtained from History obtained from: Patient, EMS - History of Present Illness Timing - onset: Today (29-year-old gentleman brought from I think his home by ambulance. Reportedly some folks who I guess where his roommates reported that he was screaming in his room and saying he does not feel well. The patient is an unreliable historian. Stating things like he has to be at a car meet at 2 PM. He does not know the date. He does not know why he is here. He argues that he did not come from [place] park. The paramedics were consistent and persistent that he came from a home that was "in rough shape.") - Additional information Additional information: There is a report of a cough, the acuity of this is unknown. He is not coughing on exam. Review of Systems Unable to obtain: Confused PD PAST MEDICAL HISTORY - Past Medical History Cardiovascular: None Respiratory: Pneumonia Neuro: Headaches, Migraines Endocrine/Autoimmune: None GI: GERD : Kidney stones HEENT: None Psych: Anxiety Musculoskeletal: None Derm: None - Past Surgical History Past Surgical History: No - Present Medications Home Medications: Ambulatory Orders Medication Instructions Recorded Confirmed Buspirone HCl 1 tab ORAL BID 01/25/19 01/25/19 FLUoxetine [PROzac] 80 mg PO DAILY 01/25/19 01/25/19 Mirtazapine 30 mg PO QPM 06/29/19 06/29/19 - Allergies Allergies/Adverse Reactions: Allergies Allergy/AdvReac Type Severity Reaction Status Date / Time No Known Drug Allergies Allergy Verified 01/25/19 10:41 - Social History Does the pt smoke?: Yes Smoking Status: Current every day smoker Does the pt drink ETOH?: Yes Does the pt have substance abuse?: Yes - Immunizations Immunizations are current?: Yes - POLST Patient has POLST: No PD ED PE NORMAL - Vitals Vital signs reviewed: Yes - General General: No acute distress, Other (He is alert and oriented to person and place but not time or events) - HEENT HEENT: Other (Midpoint pupils with bilateral nystagmus in either direction) - Neck Neck: Supple, no meningeal sign, No bony TTP - Cardiac Cardiac: RRR, No murmur - Respiratory Respiratory: No respiratory distress, Clear bilaterally - Abdomen Abdomen: Normal bowel sounds, Soft, Non tender - Back Back: No CVA TTP, No spinal TTP - Derm Derm: Normal color, Warm and dry - Neuro Neuro: No motor deficit, No sensory deficit, Normal speech, Other (Slow [id number]-xh-rian testing with mild ataxia on both sides) Eye Opening: Spontaneous Motor: Obeys Commands Verbal: Confused GCS Score: 14 Results - Vitals Vitals: Vital Signs - 24 hr 06/29/19 06/29/19 06/29/19 18:58 19:03 20:23 Temperature 37 C 36.9 C Heart Rate 88 88 Respiratory 14 18 Rate Blood Pressure 138/100 H 128/72 O2 Saturation 99 98 Oxygen O2 Source Room air - Labs Labs: Laboratory Tests 06/29/19 06/29/19 06/29/19 19:00 19:00 21:05 WBC 16.5 H RBC 4.93 Hgb 15.2 Hct 42.7 MCV 86.6 MCH 30.8 MCHC 35.6 RDW 12.2 Plt Count 267 MPV 9.6 Neut # (Auto) 13.3 H Lymph # (Auto) 2.0 [place] # (Auto) 0.7 Eos # (Auto) 0.3 Baso # (Auto) 0.1 Absolute Nucleated RBC 0.00 Nucleated RBC % 0.0 Sodium 135 Potassium 4.1 Chloride 103 Carbon Dioxide 25 Anion Gap 7.0 BUN 15 Creatinine 0.8 Estimated GFR (MDRD) 115 Glucose 119 H Calcium 8.8 Total Bilirubin 1.6 H AST 22 ALT 28 Alkaline Phosphatase 70 Total Protein 7.9 Albumin 4.5 Globulin 3.4 Albumin/Globulin Ratio 1.3 Lipase 25 Salicylates < 6.0 Urine Opiates Screen NEGATIVE Ur Oxycodone Screen NEGATIVE Urine Methadone Screen NEGATIVE Ur Propoxyphene Screen NEGATIVE Acetaminophen < 10 L Ur Barbiturates Screen NEGATIVE Ur Tricyclics Screen NEGATIVE Ur Phencyclidine Scrn NEGATIVE Ur Amphetamine Screen NEGATIVE U Methamphetamines Scrn NEGATIVE U Benzodiazepines Scrn NEGATIVE Urine Cocaine Screen NEGATIVE U Cannabinoids Screen POSITIVE H Ethyl Alcohol < 5.0 - Rads (name of study) 1v chest Radiology: EMP read contemporaneously (normal) PD MEDICAL DECISION MAKING - ED course ED course: 29-year-old gentleman presents with an acute confusion. While in the emergency department his confusion resolved although he still does not remember the situation of how it started or where he was or how it happened. Work-up here was negative, cannabis in the urine but he says he used marijuana a few days ago but nothing today that he remembers of any way. He denied any headache. There was no neck stiffness. At the time of discharge she was ambulatory, alert and oriented although did not know the date but knew the season year etc. Departure - Departure Disposition: Home, Self Care Clinical Impression: Confusion Condition: Good Record reviewed to determine appropriate education?: Yes Instructions: ED Confusion Comments: Cause of your confusion today is unclear. Thankfully you seem almost completely better. Return for new or worsening symptoms and have a reliable person watch you tonight. Do not drive today. Do not drive until you are completely better. Follow-up with your doctor, next available appointment.
[2019-06-29 19:06] LABS: BASOPHILS # (AUTO) 0.1 10^3/uL (0.0-0.1); BASOPHILS % (AUTO) 0.4 %; EOSINOPHILS # (AUTO) 0.3 10^3/uL (0.0-0.7); EOSINOPHILS % (AUTO) 1.8 %; HGB - HEMOGLOBIN 15.2 g/dL (14.0-18.0); LYMPHOCYTES % (AUTO) 11.9 %; MEAN CORPUSCULAR HEMOGLOBIN 30.8 pg (27.0-31.0); MEAN CORPUSCULAR HGB CONC 35.6 g/dL (32.0-36.0); MEAN CORPUSCULAR VOLUME 86.6 fL (80.0-94.0); MEAN PLATELET VOLUME 9.6 fL (7.4-11.4); MONOCYTES # (AUTO) 0.7 10^3/uL (0.0-1.0); MONOCYTES % (AUTO) 4.4 %; NEUTROPHILS # (AUTO) 13.3 10^3/uL (1.5-6.6); NEUTROPHILS % (AUTO) 80.7 %; PLT - PLATELET COUNT 267 10^3/uL (130-450); RED BLOOD COUNT 4.93 10^6/uL (4.70-6.10); RED CELL DISTRIBUTION WIDTH 12.2 % (12.0-15.0); WHITE BLOOD COUNT 16.5 x10^3/uL (4.8-10.8)
[2019-06-29 19:23] LABS: ACETAMINOPHEN < 10 ug/mL (10-30); ALBUMIN 4.5 g/dL (3.2-5.5); ALBUMIN/GLOBULIN RATIO 1.3 (1.0-2.2); ALKALINE PHOSPHATASE 70 IU/L (42-121); ALT ALANINE AMINOTRANSFERASE 28 IU/L (10-60); AST ASPARTATE AMINOTRANSFERASE 22 IU/L (10-42); BILIRUBIN,TOTAL 1.6 mg/dL (0.2-1.0); BUN - BLOOD UREA NITROGEN 15 mg/dL (6-20); CALCIUM 8.8 mg/dL (8.5-10.3); CARBON DIOXIDE - CO2 25 mmol/L (21-32); CHLORIDE 103 mmol/L (101-111); CREATININE 0.8 mg/dL (0.6-1.2); GLUCOSE 119 mg/dL (70-100); LIPASE 25 U/L (22-51); SALICYLATE < 6.0 mg/dL; SODIUM 135 mmol/L (135-145); TOTAL PROTEIN 7.9 g/dL (6.7-8.2)
--- NOTE | 2019-06-29 20:02 | XRAY Report ---
Reason: cough Procedure Date: 06/29/2019 Accession Number: [id number] / [id number] Procedure: XR - Chest 1 View X-Ray CPT Code: 55166 Final Report FULL RESULT: EXAM: CHEST RADIOGRAPHY EXAM DATE: 06/29/2019 07:25 PM. CLINICAL HISTORY: Cough. COMPARISON: CHEST 2 VIEW 09/18/2018 6:49 PM. TECHNIQUE: 1 view. FINDINGS: Lungs/Pleura: No focal opacities evident. No pleural effusion. No pneumothorax. Mediastinum: Within exam limitations, the cardiomediastinal contour is normal. Other: None. IMPRESSION: No acute cardiopulmonary process. RADIA
--- NOTE | 2019-06-29 20:11 | CT Report ---
Reason: altered Procedure Date: 06/29/2019 Accession Number: [id number] / [id number] Procedure: CT - HEAD WO CPT Code: Final Report FULL RESULT: EXAM: CT HEAD EXAM DATE: 06/29/2019 07:25 PM. CLINICAL HISTORY: Altered. COMPARISON: HEAD W/O 10/29/2018 10:07 PM. TECHNIQUE: Multiaxial CT images were obtained from the foramen magnum to the vertex. Reformats: Sagittal and coronal. IV contrast: None. In accordance with CT protocol optimization, one or more of the following dose reduction techniques were utilized for this exam: automated exposure control, adjustment of mA and/or KV based on patient size, or use of iterative reconstructive technique. FINDINGS: Parenchyma: No intraparenchymal hemorrhage. No evidence of mass, midline shift, or CT findings of infarction. Davidson-white differentiation is distinct. Extraaxial Spaces: Normal for age. No subdural or epidural collections identified. Ventricles: Normal in size and position. Sinuses and Orbits: Imaged paranasal sinuses, orbits, and mastoids show no significant abnormality. Bones: No evidence of fracture or calvarial defect. Other: None. IMPRESSION: Normal head CT. RADIA
[2019-06-29 21:14] LABS: MUDS CUTOFF CONCENTRATIONS CUTOFF CONC BELOW:
[2019-06-29 21:29] LABS: AMPHETAMINE SCREEN,URINE NEGATIVE (NEGATIVE); BENZODIAZEPINES SCREEN, URINE NEGATIVE (NEGATIVE); COCAINE SCREEN URINE NEGATIVE (NEGATIVE); METHADONE SCREEN, URINE NEGATIVE (NEGATIVE); METHAMPHETAMINES SCREEN, URINE NEGATIVE (NEGATIVE); OPIATE SCREEN, URINE NEGATIVE (NEGATIVE); OXYCODONE SCREEN, URINE NEGATIVE (NEGATIVE); PROPOXYPHENE SCREEN, URINE NEGATIVE (NEGATIVE); TRICYCLIC ANTIDEPRESSANT,URINE NEGATIVE (NEGATIVE)
[2019-06-29 21:56] VITALS: BP 126/82
== END 2019-06-29 21:54 | disposition home or self-care (01) ==
LOC: EDUNIT# → ED 18:49
DX: R41.0 Disorientation, unspecified (principal); F17.200 Nicotine dependence, unspecified, uncomplicated
CPT/HCPCS: 36415; 70450; 71045; 80053; 80306; 80307; 80320; 80329; 83690; 85025; 99281; 99284

== ENCOUNTER 2021-03-15 14:17 | Emergency (ER) | payer MEDICAID ==
[2021-03-15 14:26] VITALS: BP 133/84
[2021-03-15] MEDS ORDERED: predniSONE 20 MG TABLET PO STA (15:35)
[2021-03-15] MEDS ORDERED: ALBUTEROL NEB 2.5 MG/3 ML INH STA (15:35)
--- NOTE | 2021-03-15 16:04 | ED Physician Documentation ---
History of Present Illness - Stated complaint Stated Complaint: SOA/WEAKENSS - Chief complaint Chief Complaint: Resp - History obtained from History obtained from: Patient - History of Present Illness Pain level max: 3 Pain level now: 2 - Additonal information Additional information: 31-year-old male presents to the emergency department with 2 days of body aches, sore throat, rhinorrhea and congestion. Also feels short of breath. Has an inhaler at home but has not used it. Feels weak and tired. States feels lightheaded occasionally with standing. He states he drank about 5 glasses of water prior to coming to the emergency department.Patient is Covid vaccinated. Review of Systems Constitutional: denies: Fever, Chills Nose: reports: Rhinorrhea / runny nose, Congestion Throat: reports: Sore throat Respiratory: reports: Cough GI: denies: Nausea, Vomiting, Diarrhea Skin: denies: Rash Musculoskeletal: denies: Neck pain, Back pain Neurologic: reports: Headache (Gradual onset, holoacranial.). denies: Head injury PD PAST MEDICAL HISTORY - Past Medical History Past Medical History: Yes Cardiovascular: None Respiratory: Pneumonia Neuro: Headaches, Migraines Endocrine/Autoimmune: None GI: GERD : Kidney stones HEENT: None Psych: Anxiety Musculoskeletal: None Derm: None - Past Surgical History Past Surgical History: No - Present Medications Home Medications: Ambulatory Orders Medication Instructions Recorded Confirmed Buspirone HCl 1 tab ORAL BID 01/25/19 01/25/19 FLUoxetine [PROzac] 80 mg PO DAILY 01/25/19 01/25/19 Mirtazapine 30 mg PO QPM 06/29/19 06/29/19 Benzonatate [Tessalon] 200 mg PO TID PRN #30 cap 03/15/21 Ondansetron Odt [Zofran] 4 mg TL Q6H PRN #10 tablet 03/15/21 predniSONE [Deltasone] 10 mg PO [id number] #42 tab 03/15/21 - Allergies Allergies/Adverse Reactions: Allergies Allergy/AdvReac Type Severity Reaction Status Date / Time No Known Drug Allergies Allergy Verified 03/15/21 14:26 - Social History Does the pt smoke?: Yes Smoking Status: Current every day smoker Does the pt drink ETOH?: Yes Does the pt have substance abuse?: Yes - Immunizations Immunizations are current?: Yes - POLST Patient has POLST: No PD ED PE NORMAL - Vitals Vital signs reviewed: Yes - General General: Alert and oriented X 3, No acute distress - HEENT HEENT: Ears normal, Moist mucous membranes, Pharynx benign - Neck Neck: Supple, no meningeal sign, No adenopathy - Cardiac Cardiac: RRR, Strong equal pulses - Respiratory Respiratory: No respiratory distress, Other (Mildly diminished breath sounds bilaterally) - Abdomen Abdomen: Soft, Non tender, Non distended - Derm Derm: Warm and dry - Neuro Neuro: Alert and oriented X 3 - Psych Psych: Normal mood, Normal affect Results - Vitals Vitals: Vital Signs - 24 hr 03/15/21 03/15/21 14:21 16:07 Temperature 36.7 C Heart Rate 84 84 Respiratory 20 18 Rate Blood Pressure 133/84 H O2 Saturation 97 Oxygen O2 Source Room air PD MEDICAL DECISION MAKING - ED course Complexity details: reviewed results, considered differential, d/w patient ED course: We will place on steroids and encouraged him to use has albuterol at home. Feels better after albuterol treatment here. Patient is well-appearing, nontoxic. Afebrile. No hypoxia or respiratory distress. Covid testing performed. Patient counseled regarding signs and symptoms for which I believe and urgent re- evaluation would be necessary. Patient with good understanding of and agreement to plan and is comfortable going home at this time This document was made in part using voice recognition software. While efforts are made to proofread this document, sound alike and grammatical errors may occur. Departure - Departure Disposition: 01 Home, Self Care Clinical Impression: Viral URI Condition: Good Instructions: ED Viral Syndrome Follow-Up: TAO ENRIQUE DO [Primary Care Provider] - Within 1 week Prescriptions: predniSONE [Deltasone] 10 mg PO [id number] #42 tab Benzonatate [Tessalon] 200 mg PO TID PRN #30 cap PRN Reason: Cough Ondansetron Odt [Zofran] 4 mg TL Q6H PRN #10 tablet PRN Reason: Nausea / Vomiting Comments: Please follow-up with your doctor for further care. Return if you worsen. Drink plenty of fluids and rest. You have a Covid test pending. You need to self quarantine until the result is done and negative. The results should be done in 24-48 hours. We will call with a positive result, the fastest way to get a negative result for confirmation though is to go to the hospital website at [email or web address], click on the my [facility] tab and sign up for the patient portal. If any of your friends and/or family need to be tested, they can call the hospital at [phone] for an appointment to have their Covid test. Your prescriptions were sent to [facility] in [place]. Discharge Date/Time: 03/15/21 16:48
== END 2021-03-15 16:48 | disposition home or self-care (01) ==
LOC: ED 14:17
DX: U07.1 COVID-19 (principal); F17.200 Nicotine dependence, unspecified, uncomplicated
CPT/HCPCS: 87635; 94640; 99283; J7512; 87430

== ENCOUNTER 2021-03-23 16:49 | Emergency (ER) | payer MEDICAID ==
[2021-03-23 17:15] LABS: BASOPHILS # (AUTO) 0.1 10^3/uL (0.0-0.1); BASOPHILS % (AUTO) 0.5 %; EOSINOPHILS # (AUTO) 0.3 10^3/uL (0.0-0.7); EOSINOPHILS % (AUTO) 3.1 %; HCT - HEMATOCRIT 44.4 % (42.0-52.0); HGB - HEMOGLOBIN 16.1 g/dL (14.0-18.0); LYMPHOCYTES # (AUTO) 2.9 10^3/uL (1.5-3.5); LYMPHOCYTES % (AUTO) 28.6 %; MEAN CORPUSCULAR HEMOGLOBIN 30.3 pg (27.0-31.0); MEAN CORPUSCULAR HGB CONC 36.3 g/dL (32.0-36.0); MEAN CORPUSCULAR VOLUME 83.6 fL (80.0-94.0); MEAN PLATELET VOLUME 9.4 fL (7.4-11.4); MONOCYTES # (AUTO) 0.9 10^3/uL (0.0-1.0); MONOCYTES % (AUTO) 8.7 %; NEUTROPHILS # (AUTO) 6.1 10^3/uL (1.5-6.6); NEUTROPHILS % (AUTO) 58.9 %; PLT - PLATELET COUNT 347 10^3/uL (130-450); RED BLOOD COUNT 5.31 10^6/uL (4.70-6.10); RED CELL DISTRIBUTION WIDTH 12.1 % (12.0-15.0); WHITE BLOOD COUNT 10.3 x10^3/uL (4.8-10.8)
--- NOTE | 2021-03-23 17:25 | XRAY Report ---
PROCEDURE: Chest 1 View X-Ray INDICATIONS: Chest Pain TECHNIQUE: One view of the chest was acquired. COMPARISON: 06/29/2019 FINDINGS: Surgical changes and devices: None. Lungs and pleura: No pleural effusions or pneumothorax. Lungs are clear. Mediastinum: Mediastinal contours appear normal. Heart size is normal. Bones and chest wall: No suspicious bony lesions. Overlying soft tissues appear unremarkable. IMPRESSION: No acute cardiopulmonary process demonstrated radiographically. Reviewed by: Jorje Romero MD on 03/23/2021 4:24 PM [facility] Approved by: Jorje Romero MD on 03/23/2021 4:24 PM [facility] Station ID: [id number]
[2021-03-23 17:30] LABS: ALBUMIN 4.3 g/dL (3.2-5.5); ALBUMIN/GLOBULIN RATIO 1.2 (1.0-2.2); BILIRUBIN,TOTAL 1.4 mg/dL (0.2-1.0); CALCIUM 9.4 mg/dL (8.5-10.3); CREATININE 0.8 mg/dL (0.6-1.2); POTASSIUM 3.8 mmol/L (3.5-5.0); TOTAL PROTEIN 7.9 g/dL (6.7-8.2)
--- NOTE | 2021-03-23 17:32 | ED Physician Documentation ---
History of Present Illness - Stated complaint Stated Complaint: FAINTED/BLURRY VISION - Chief complaint Chief Complaint: Neuro - Additonal information Additional information: 31-year-old male presents emergency department for evaluation of a syncopal episode. He reports that over the years he has had multiple near syncopal events and has been able to stop himself from passing out. This morning while in the shower after about 10 minutes he suddenly fainted. He did not strike his head. He thinks he had a lapse in consciousness that was just only a few seconds. He recently established with a primary care doctor and they are starting the work-up of his syncope/presyncope which has included a referral for a Holter monitor. Patient is denying any chest pain or shortness of air. Yesterday he did have some mild diarrhea. No vomiting. He did develop cough and congestion on 15 March and tested positive for COVID- 19. He feels that those symptoms have resolved. He did get the 1 dose J&J vaccine. Denies any history of hypertension or diabetes. He stopped smoking and vaping at the beginning of the year. No alcohol use. Very rare cannabis use. No family history of sudden or early cardiac , abnormal cardiac electrop hysiology/WPW. Review of Systems Constitutional: denies: Fever, Chills Eyes: reports: Reviewed and negative Ears: reports: Reviewed and negative Nose: reports: Reviewed and negative Throat: reports: Reviewed and negative Cardiac: reports: Reviewed and negative Respiratory: reports: Reviewed and negative GI: reports: Reviewed and negative : reports: Reviewed and negative Musculoskeletal: reports: Reviewed and negative Neurologic: reports: Syncope. denies: Generalized weakness, Focal weakness, Numbness, Difficulty speaking, Seizure, Confused, Headache, Head injury, LOC PD PAST MEDICAL HISTORY - Past Medical History Past Medical History: Yes Cardiovascular: None Respiratory: Pneumonia Neuro: Headaches, Migraines Endocrine/Autoimmune: None GI: GERD : Kidney stones HEENT: None Psych: Anxiety Musculoskeletal: None Derm: None - Past Surgical History Past Surgical History: No - Present Medications Home Medications: Ambulatory Orders Medication Instructions Recorded Confirmed Buspirone HCl 1 tab ORAL BID 01/25/19 01/25/19 FLUoxetine [PROzac] 80 mg PO DAILY 01/25/19 01/25/19 Mirtazapine 30 mg PO QPM 06/29/19 06/29/19 Benzonatate [Tessalon] 200 mg PO TID PRN #30 cap 03/15/21 Ondansetron Odt [Zofran] 4 mg TL Q6H PRN #10 tablet 03/15/21 predniSONE [Deltasone] 10 mg PO [id number] #42 tab 03/15/21 - Allergies Allergies/Adverse Reactions: Allergies Allergy/AdvReac Type Severity Reaction Status Date / Time No Known Drug Allergies Allergy Verified 03/23/21 16:59 - Social History Does the pt smoke?: Yes Smoking Status: Current every day smoker Does the pt drink ETOH?: Yes Does the pt have substance abuse?: Yes - Immunizations Immunizations are current?: Yes - POLST Patient has POLST: No PD ED PE NORMAL - General General: Alert and oriented X 3, No acute distress - HEENT HEENT: PERRL - Neck Neck: Supple, no meningeal sign, No adenopathy - Cardiac Cardiac: RRR, No murmur - Respiratory Respiratory: Clear bilaterally - Abdomen Abdomen: Normal bowel sounds, Soft, Non tender, Non distended - Back Back: No CVA TTP - Derm Derm: Normal color, Warm and dry, No rash - Extremities Extremities: No deformity - Neuro Neuro: Alert and oriented X 3, 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 Eye Opening: Spontaneous Motor: Obeys Commands Verbal: Oriented GCS Score: 15 Results - Vitals Vitals: Vital Signs - 24 hr 03/23/21 03/23/21 03/23/21 16:53 18:18 18:25 Temperature 36.3 C L Heart Rate 89 97 Heart Rate [ 98 Sitting] Heart Rate [ 97 Standing] Heart Rate [ 97 Supine] Respiratory 16 18 Rate Blood Pressure 116/86 H 133/94 H Blood Pressure 135/99 H [Sitting] Blood Pressure 136/100 H [Standing] Blood Pressure 133/94 H [Supine] O2 Saturation 97 97 Oxygen O2 Source Room air - EKG (time done) 1723 Rate: Rate (enter#) (67) Rhythm: NSR [place]: Normal Intervals: Normal MS QRS: Normal Ischemia: Normal ST segments Compare to prior EKG: Old EKG unavailable Computer interpretation: Agree with computer - Labs Labs: Laboratory Tests 03/23/21 03/23/21 03/23/21 17:04 17:09 17:09 WBC 10.3 RBC 5.31 Hgb 16.1 Hct 44.4 MCV 83.6 MCH 30.3 MCHC 36.3 H RDW 12.1 Plt Count 347 MPV 9.4 Neut # (Auto) 6.1 Lymph # (Auto) 2.9 [place] # (Auto) 0.9 Eos # (Auto) 0.3 Baso # (Auto) 0.1 Absolute Nucleated RBC 0.00 Nucleated RBC % 0.0 Sodium 140 Potassium 3.8 Chloride 103 Carbon Dioxide 26 Anion Gap 11.0 BUN 15 Creatinine 0.8 Estimated GFR (MDRD) 114 Glucose 107 H POC Whole Bld Glucose 126 H Calcium 9.4 Total Bilirubin 1.4 H AST 19 ALT 32 Alkaline Phosphatase 44 Troponin I High Sens Total Protein 7.9 Albumin 4.3 Globulin 3.6 Albumin/Globulin Ratio 1.2 Lipase 36 TSH 03/23/21 03/23/21 17:09 17:09 WBC RBC Hgb Hct MCV MCH MCHC RDW Plt Count MPV Neut # (Auto) Lymph # (Auto) [place] # (Auto) Eos # (Auto) Baso # (Auto) Absolute Nucleated RBC Nucleated RBC % Sodium Potassium Chloride Carbon Dioxide Anion Gap BUN Creatinine Estimated GFR (MDRD) Glucose POC Whole Bld Glucose Calcium Total Bilirubin AST ALT Alkaline Phosphatase Troponin I High Sens 2.7 Total Protein Albumin Globulin Albumin/Globulin Ratio Lipase TSH 1.83 - Rads (name of study) CXR Radiology: Final report received (no acute cardiopulmonary pathology) PD MEDICAL DECISION MAKING - ED course Complexity details: reviewed results, re-evaluated patient, d/w patient ED course: 31-year-old male presents emergency department for evaluation of a syncopal event that occurred this afternoon when he was in the shower. He was diagnosed with COVID-19 infection on 15 March. He is denying any chest pain or shortness of air. He has unremarkable vitals. Screening labs and EKG are without acute findings. Orthostatics are negative. While here in the emergency department he has had no ectopy and his exam is otherwise unremarkable. He reports that he has recently established with a primary care doctor to discuss a history of recurrent near syncope though he has never syncopized until today. At this time he is discharged home. Emergent return precautions were discussed. Departure - Departure Disposition: Home, Self Care Clinical Impression: Syncope and collapse Condition: Critical Record reviewed to determine appropriate education?: Yes Instructions: ED Fainting Unkn Cause Comments: Power luis were seen in the emergency department today after you fainted this afternoon in your shower. Your screening labs, EKG and chest x-ray are all essentially normal. Your vital signs are normal. You reported a history of near fainting episodes in the past and have started to discuss this with primary care doctor. If at any point you develop chest pain or have shortness of air you should return to the ER however I would recommend follow-up with primary doctor outpatient testing should consider a Holter monitor and/or referral for an echocardiogram.
[2021-03-23 18:19] VITALS: BP 133/94
== END 2021-03-23 18:35 | disposition home or self-care (01) ==
LOC: ED 16:49
DX: R55 Syncope and collapse (principal)
CPT/HCPCS: 36415; 80053; 83690; 84443; 84484; 85025; 93005; 99283; 99284